=== PATIENT | female | born 1955 | race African-American/Black ===

== ENCOUNTER 2018-05-06 13:25 | Emergency (ER) | payer OTHER ==
[~2018-05-06] VITALS: Ht 154.9 cm; Wt 90.7 kg
[2018-05-06] MEDS ORDERED: NAPROSYN500 MG PO (18:59)
[2018-05-06] MEDS ORDERED: NORFLEX100 MG PO (18:59)
[2018-05-06 19:09] VITALS: BP 194/106
== END 2018-05-06 20:20 | disposition home or self-care (01) ==
LOC: ER 13:25
DX: S16.1XXA Strain of muscle, fascia and tendon at neck level, initial encounter (principal); S29.012A Strain of muscle and tendon of back wall of thorax, initial encounter; S80.01XA Contusion of right knee, initial encounter; I10 Essential (primary) hypertension; E11.9 Type 2 diabetes mellitus without complications; Z88.0 Allergy status to penicillin; V89.2XXA Person injured in unspecified motor-vehicle accident, traffic, initial encounter; Y92.89 Other specified places as the place of occurrence of the external cause; Y93.89 Activity, other specified; Y99.8 Other external cause status

== ENCOUNTER 2018-08-15 17:11 | Emergency (ER) | payer OTHER ==
[~2018-08-15] VITALS: Ht 154.9 cm; Wt 90.7 kg
[~2018-08-15 17:11] MED LIST: NAPROSYN500 MG PO; NORFLEX100 MG PO
[2018-08-15] MEDS ORDERED: DOXYCYCLINE 10100 MG PO (19:01)
[2018-08-15] MEDS ORDERED: TESSALON PERLE100 MG PO (19:01)
[2018-08-15] MEDS ORDERED: HYDROCHLOROTHIA25 M1 PO (19:29)
[2018-08-15 19:59] VITALS: BP 188/101
== END 2018-08-15 19:50 | disposition home or self-care (01) ==
LOC: ER 17:11
DX: J20.9 Acute bronchitis, unspecified (principal); J06.9 Acute upper respiratory infection, unspecified; E11.9 Type 2 diabetes mellitus without complications; I10 Essential (primary) hypertension; Z88.0 Allergy status to penicillin